=== PATIENT | female | born 1950 | race Caucasian/White ===

== ENCOUNTER → 2017-02-10 | Outpatient (CLI) | payer OTHER, BC ==
[~2017-02-10] MED LIST: ASPIRIN EC81 M1 PO; CLIMARA 0.070.075 MG; ESTRACE0.5 MG PO; LEVOTHYROXINE0.2 M1 PO; VERAPAMIL ER120 MG PO; ZOFRAN ODT4 MG PO
--- NOTE | ~2017-02-10 | PFR/MVV ---
[facility] [place] [address] PULMONARY FUNCTION MVV/REPORT Name: GRISELDA JONES Room #: [facility]#: [id number] Admission: 02/10/17 Attend Phys: MILTON Bo Discharge: Date of : 50 Report #: [id number] THIS REPORT FOR: //name// COPIES FOR: AGE: 66 SEX/RACE: F/C >> SPIROMETRY: (BTPS) Height: 63.0 in cm Weight: 197 lbs kg Exam Date: 02/10/17 PRE-RX POST-RX PRED BEST %PRED BEST %PRED %CHG FVC LITERS . 2.96 . 3.26 . 110 . 3.38 . 114 . 4 FEV1 LITERS . 2.43 . 2.39 . 99 . 2.64 . 109 . 10 FEV1/FVC % . 84 . 73 . 88 . 78 . 93 . 6 NHA59-85% L/Sec . 2.66 . 1.75 . 66 . 2.31 . 87 . 32 PEF L/SEC . 5.70 . 6.55 . 115 . 6.70 . 118 . 2 FEF50/FIF50 UNITLESS . <1.00 . 0.48 . . 0.62 . . 30 MVV L/Min . 95 . 66 . 70 f 1/Min . . 145 . >> LUNG VOLUMES: (BTPS) PRE-RX POST-RX PRED AVG %PRED AVG %PRED %CHG VC Liters . 2.96 . 3.26 . 110 . . . TLC Liters . 4.72 . 4.96 . 105 . . . RV Liters . 1.73 . 1.71 . 99 . . . RV/TLC % . 37 . 94 . 94 . . . FRC PL Liters . 2.25 . 1.90 . 84 . . . FRC N2 Liters . 2.25 . . . . . ERV Liters . . 0.19 . . . . IC Liters . . 2.90 . . . . >> DIFFUSION: DLCO ml/Min/mmHg . 23.7 . 17.8 . 75 . . . DL Beatrice ml/Min/mmHg . 23.7 . 17.8 . 75 . . . DLCO/VA ml/Min/mmHg . 3.93 . 4.43 . 113 . . . VA Liters . . 4.01 . . . . [facility] [address] [place] [address] PULMONARY FUNCTION MVV/REPORT Name: GRISELDA JONES Room #: [facility]#: [id number] Admission: 02/10/17 Attend Phys: MILTON Bo Discharge: Date of : 50 Report #: [id number] COMMENTS: COMMENTS: >> RESISTANCE: PRE-RX PRED AVG %PRED Raw Total cmH20/L/Sec . . 4.91 . Raw Insp cmH20/L/Sec . . 6.16 . Raw Exp cmH20/L/Sec . . 8.98 . Raw cmH20/L/Sec . 1.74 . 1.91 . 110 Gaw L/Sec/cmH20 . 0.539 . 0.523 . 97 sRaw cmH20 Sec . 3.92 . 5.90 . 151 sGaw l/cmH20 Sec . 0.255 . 0.169 . 66 Vtq Liters . . 3.09 . # = OUTSIDE 95% CONFIDENCE INTERVAL CALIBRATION: PRED: 3.00 ACTUAL: EXP 3.01 INSP 3.02 [facility]-10-06 [facility] N-1804-4 >> INTERPRETATION/IMPRESSION: CC: Jose F Wilkes DATE OF SERVICE: 02/10/2017 DATE OF STUDY: 02/10/2017 NOTATION: Full pulmonary function studies revealed normal spirometry. There was some improvement with bronchodilators. Lung volumes are normal. DLCO Normal. OVERALL IMPRESSION: Normal lung volumes with some improvement noted with bronchodilators, although no evidence for airflow obstruction. Correlate clinically. <ELECTRONICALLY SIGNED> By: Meek Hendrickson MD 02/18/17 1305 Meek Hendrickson MD /nt
== END ==
LOC: PUL 09:48
DX: R06.2 Wheezing (principal)

== ENCOUNTER → 2017-03-23 | Outpatient (CLI) | payer OTHER, BC | LOC: RAD 02:25 | DX: Z12.31 Encounter for screening mammogram for malignant neoplasm of breast (principal) ==

== ENCOUNTER → 2018-04-01 | Outpatient (CLI) | payer OTHER, BC | LOC: RAD 08:56 | DX: J98.4 Other disorders of lung (principal); Z90.49 Acquired absence of other specified parts of digestive tract ==

== ENCOUNTER → 2018-11-17 | Outpatient (CLI) | payer OTHER | LOC: CAT 09-13 15:20 | DX: Z13.6 Encounter for screening for cardiovascular disorders (principal); E78.00 Pure hypercholesterolemia, unspecified; Z82.49 Family history of ischemic heart disease and other diseases of the circulatory system ==

== ENCOUNTER → 2018-12-30 | Outpatient (CLI) | payer OTHER, BC | LOC: MRI 13:32 | DX: R60.0 Localized edema (principal); M25.561 Pain in right knee; M25.572 Pain in left ankle and joints of left foot; G89.29 Other chronic pain ==

== ENCOUNTER → 2020-01-17 | Outpatient (CLI) | payer OTHER, BC | LOC: BC 08:23 → RAD 09:25 | PROVIDERS: ATTEND Obstetrics & Gynecology | DX: N63.10 Unspecified lump in the right breast, unspecified quadrant (principal); N64.89 Other specified disorders of breast ==

== ENCOUNTER → 2020-04-11 | Outpatient (CLI) | payer OTHER, BC | LOC: SJCVCIMAG 11:21 | PROVIDERS: ATTEND Internal Medicine Cardiovascular Disease | DX: I49.3 Ventricular premature depolarization (principal); I10 Essential (primary) hypertension; E78.5 Hyperlipidemia, unspecified; R93.1 Abnormal findings on diagnostic imaging of heart and coronary circulation ==

== ENCOUNTER 2020-06-02 13:22 | Inpatient (IN) | payer OTHER, BC ==
[~2020-06-02] VITALS: Ht 162.6 cm; Wt 88.9 kg
[2020-06-02 13:33] VITALS: BP 135/77
[2020-06-02 15:43] LABS: ABSOLUTE NEUTROPHILS 5.6 thou/uL (1.4-8.2); BASOPHILS 1.1 % (0.0-2.0); HEMATOCRIT 44.5 % (37.0-47.0); LYMPHOCYTES 21.2 % (24.0-44.0); MCH 29.5 pg (26.0-34.0); MCHC 33.7 g/dL (28.0-37.0); MCV 87.3 fL (80.0-100.0); MONOCYTES 6.6 % (1.0-8.0); PLATELET COUNT 366 thou/uL (150-400); POLYS 67.1 % (36.0-66.0); RDW 12.3 % (10.5-14.5); WBC 8.4 thou/uL (4.0-11.0)
[2020-06-02 15:53] LABS: ANION GAP 10 mmol/L (7-16); BUN 19 mg/dL (7-18); CHLORIDE 99 mmol/L (98-107); CO2 30 mmol/L (21-32); CREATININE 1.2 mg/dL (0.6-1.0); GLUCOSE 102 mg/dL (74-106); POTASSIUM 3.4 mmol/L (3.5-5.1); SODIUM 139 mmol/L (136-145)
[2020-06-02 16:04] LABS: ALBUMIN 2.9 g/dL (3.4-5.0); SGOT 22 U/L (15-37); SGPT 30 U/L (30-65); TOTAL BILIRUBIN 0.6 mg/dL (0.2-1.0); TOTAL PROTEIN 7.7 g/dL (6.4-8.2); TROPONIN-I <0.06 ng/mL (<0.06)
[2020-06-02] MEDS ORDERED: IRBESARTAN-HCT1 EACH PO (16:48)
[2020-06-02] MEDS ORDERED: EUTHYROX88 MCG PO (16:48)
[2020-06-02 20:00] VITALS: BP 121/70; BP 123/70
[2020-06-03 01:03] VITALS: BP 129/55
[2020-06-03 06:19] LABS: HEMATOCRIT 40.7 % (37.0-47.0); HEMOGLOBIN 13.8 gm/dL (12.0-15.0); MCH 29.8 pg (26.0-34.0); MCV 87.6 fL (80.0-100.0); RBC 4.65 mil/uL (4.20-5.00); RDW 12.1 % (10.5-14.5); WBC 9.3 thou/uL (4.0-11.0)
[2020-06-03 06:36] LABS: ALBUMIN 2.5 g/dL (3.4-5.0); CALCIUM 8.8 mg/dL (8.5-10.1); CREATININE 1.1 mg/dL (0.6-1.0); POTASSIUM 3.5 mmol/L (3.5-5.1); TOTAL BILIRUBIN 0.4 mg/dL (0.2-1.0); TOTAL PROTEIN 6.9 g/dL (6.4-8.2)
[2020-06-03 06:51] VITALS: BP 126/68
--- NOTE | 2020-06-03 07:17 | EKG ---
[address] [place] [address] ELECTROCARDIOGRAM REPORT Name: GRISELDA JONES Room #: 170-23 ADM IN M.R.#: [id number] Admission: 06/02/20 Attend Phys: Eleazar Wilkes MD Discharge: Date of : 50 Report #: [id number] [facility] ED Test Date: 2020-06-02 Test Time: 15:15:50 Pat Name: GRISELDA JONES Department: Room: 170 Gender: F [employer] Press Operator: DULCE MARIA : 1950 Requested By: Roseline Poe Order Number: [id number] MD: Meek Garza Measurements Intervals [place] Rate: 85 P: 58 RI: 170 QRS: -14 QRSD: 80 T: -39 QT: 365 QTc: 434 Interpretive Statements Sinus rhythm Left ventricular hypertrophy Anterior Q waves, possibly due to LVH Nonspecific T abnormalities, inferior leads Compared to ECG 09/16/2011 21:56:21 Left ventricular hypertrophy now present Q waves now present Myocardial infarct finding no longer present Possible ischemia no longer present T-wave abnormality still present Electronically Signed On 06-03-2020 7:17:23 ACQUISITIONS LOGISTICS ANALYST by Meek Garza [email or web address] <ELECTRONICALLY SIGNED> By: Meek Garza MD, FAC 06/03/20 0717 1515 1515 Meek Garza MD, [facility] /EPI
[2020-06-03 11:00] VITALS: BP 140/69
--- NOTE | 2020-06-03 14:36 | NUR ---
69 y/o female admitted to the ED with complaints of nausea, decreased appetite, feeling short of breath, particularly with exertion. She reports running fevers, T-max =102.2 degrees, starting 1 week ago that lasted for approximately 1 week. Patient states on 05/23/2020, she woke with back pain and sinus pressure headache. She contacted her PCP who prescribed doxycycline, muscle relaxant and steroid. The following day she tested positive for COVID-19. CXR reveals "persistent mild bilateral mid and lower lung nonconsolidative infiltration, most prominent on the left, unchanged." Patients spouse John Pulido is listed as contact with home number of [phone] and cell number of [phone]. Patient is being admitted for pneumonia, covid 19, dyspnea with exertion, under Dr. Wilkes. CM will follow for needs as care and discharge progresses.
[2020-06-03 15:00] VITALS: BP 140/69
[2020-06-04 05:50] LABS: ALBUMIN 2.3 g/dL (3.4-5.0); ANION GAP 9 mmol/L (7-16); BUN 18 mg/dL (7-18); CALCIUM 8.3 mg/dL (8.5-10.1); CHLORIDE 109 mmol/L (98-107); CO2 26 mmol/L (21-32); CREATININE 0.9 mg/dL (0.6-1.0); DIRECT BILIRUBIN < 0.1 mg/dL (<0.1-0.2); GLUCOSE 159 mg/dL (74-106); PHOSPHORUS 2.8 mg/dL (2.5-4.9); POTASSIUM 3.6 mmol/L (3.5-5.1); SGOT 20 U/L (15-37); SGPT 32 U/L (30-65); SODIUM 144 mmol/L (136-145); TOTAL BILIRUBIN 0.3 mg/dL (0.2-1.0); TOTAL PROTEIN 6.1 g/dL (6.4-8.2)
[2020-06-04 07:54] VITALS: BP 135/48
[2020-06-04 08:10] VITALS: BP 132/68
[2020-06-04 12:45] VITALS: BP 140/73
[2020-06-04 13:47] VITALS: BP 143/69
[2020-06-04 13:55] VITALS: BP 131/72
--- NOTE | 2020-06-04 17:24 | NUR ---
ASSUMED CARE OF PT ON ARRIVAL TO UNIT. PT AOX4 IN NO ACUTE DISTRESS. BREATHING COMFORTABLY ON 2L NC. AMBULATING AROUND ROOM BY SELF. CALLS APPROPRIATELY. WCM.
[2020-06-04 19:05] VITALS: BP 122/62
--- NOTE | 2020-06-04 23:53 | NUR ---
PT AMBULATING IN ROOM. O2 PER NC. PT REPORTS MOUTH BREATHING AND THAT ED TOLD HER THAT HER O2 DECREASED WHEN SHE WAS SLEEPING. PT REQUESTED NC INCREASE TO 3L. RESPIRATORY CONTACTED FOR BUBBLER, PT REPORTING DRY NOSE. PT STILL REPORTS NO BM AND OFFERED PRUNE JUICE. PT DISCUSSED HOW HER IS ALSO A PT ON THIS FLOOR.
[2020-06-05] VITALS (8 sets, daily range): BP systolic 107–176; BP diastolic 49–112
--- NOTE | 2020-06-05 06:02 | NUR ---
PT HR IN UPPER 40'S LOWER 50'S WHEN ASLEEP.
[2020-06-05 07:13] LABS: ALBUMIN 2.6 g/dL (3.4-5.0); ANION GAP 6 mmol/L (7-16); BUN 20 mg/dL (7-18); CALCIUM 8.5 mg/dL (8.5-10.1); CHLORIDE 107 mmol/L (98-107); CO2 28 mmol/L (21-32); CREATININE 0.9 mg/dL (0.6-1.0); DIRECT BILIRUBIN < 0.1 mg/dL (<0.1-0.2); GLUCOSE 143 mg/dL (74-106); PHOSPHORUS 3.3 mg/dL (2.6-4.7); POTASSIUM 3.3 mmol/L (3.5-5.1); SGOT 26 U/L (15-37); SGPT 47 U/L (14-59); SODIUM 141 mmol/L (136-145); TOTAL BILIRUBIN 0.3 mg/dL (0.2-1.0); TOTAL PROTEIN 6.4 g/dL (6.4-8.2)
[2020-06-05 07:41] LABS: HEMATOCRIT 40.2 % (37.0-47.0); HEMOGLOBIN 13.2 gm/dL (12.0-15.0); MCH 29.1 pg (26.0-34.0); MCHC 32.8 g/dL (28.0-37.0); MCV 88.8 fL (80.0-100.0); RBC 4.52 mil/uL (4.20-5.00); RDW 12.6 % (10.5-14.5); WBC 15.8 thou/uL (4.0-11.0)
--- NOTE | 2020-06-05 12:49 | NUR ---
IV TEAM SPOKE WITH PT,ABOUT MIDLINE. PT HAS WORKING PIV FOR NOW SO DOES NOT WANT ANYTHING PLACED YET
--- NOTE | 2020-06-05 14:16 | NUR ---
INITIAL ASSESSMENT: SW reviewed chart and spoke with nursing. Pt was admitted from home due to pneumonia. Pt placed in Enhanced Isolation due to COVID-19. Pt had positive COVID test on 05/23. Pt is afebrile and on 2L of O2. Pt is on IV abx and completing course of Remdesivir. SW spoke with pt via phone. Introduced role of SW. Pt is alert/orientated x 4. Pt reports that she and her (currently in room 354) live at home. Prior to admission, pt was independent with ADLs. Pt does not use any DME. No hx of services or post-acute placement. Pt's PCP is Dr. Wilkes. Plan is for pt to discharge home when medically stable. Pt is hoping to be able to visit her today. [facility] is following to assist as needed with discharge planning.
--- NOTE | 2020-06-05 18:37 | NUR ---
A/O X4. ANXIUOS. TOLERATED ON 2L. SLOWLY TOWARDS POC GOALS.
[2020-06-06 04:05] VITALS: BP 154/77
--- NOTE | 2020-06-06 06:37 | NUR ---
UP WITH STANDBY ASSIST TO THE HALLWAY VISITING HER .PT STRESSED OUT ABOUT 'S CONDITION.O2 2L NC.TOLERATING WELL.POC CONTINUED.
[2020-06-06 07:08] LABS: ALBUMIN 2.7 g/dL (3.4-5.0); ANION GAP 9 mmol/L (7-16); BUN 20 mg/dL (7-18); CALCIUM 8.5 mg/dL (8.5-10.1); CHLORIDE 106 mmol/L (98-107); CO2 27 mmol/L (21-32); DIRECT BILIRUBIN < 0.1 mg/dL (<0.1-0.2); GLUCOSE 156 mg/dL (74-106); PHOSPHORUS 2.9 mg/dL (2.5-4.9); POTASSIUM 3.3 mmol/L (3.5-5.1); SGOT 24 U/L (15-37); SGPT 50 U/L (30-65); SODIUM 142 mmol/L (136-145); TOTAL BILIRUBIN 0.4 mg/dL (0.2-1.0); TOTAL PROTEIN 6.6 g/dL (6.4-8.2)
[2020-06-06 07:37] VITALS: BP 155/75
--- NOTE | 2020-06-06 11:56 | NUR ---
PT CARE ASSUMED AT 0700. A&Ox4. PT EDUCATED ON IS. POTASSIUM 3.3 PROVIDER AWARE AND POTASSIUM REPLACEMENT SCHEDULED. IV PATENT WITH NO REDNESS OR EDEMA, SALINE LOCKED. IV ANTIBIOTICS INFUSING. PT SPOUSE IN ICU OF THIS AM, SHE IS VERY WORRIED, DEPRESSED, AND ANXIOUS. VERY TEARFUL. UP AT KARINA INDEPENDENTLY IN HER, ROOM. CALLL LIGHT IN ROOM. WILL CONTINUE TO MONITOR. ECHO COMPLEETED.
--- NOTE | 2020-06-06 12:44 | NUR ---
SW reviewed chart and spoke with nursing and attending physician. Pt remains in Enhanced Isolation due to COVID-19. Pt is afebrile and on 2L of O2. Pt is on IV abx and IV steroids. Pt is completing course of Remdesivir. Discharge home is anticipated over the holiday weekend. No discharge needs identified at this time. [facility] is following to assist as needed with discharge planning.
[2020-06-06 15:44] VITALS: BP 150/73
[2020-06-06 19:01] VITALS: BP 113/54
[2020-06-07 03:44] VITALS: BP 150/84
--- NOTE | 2020-06-07 05:21 | NUR ---
PT AMBULATING TO BATHROOM INDEPENDENTLY AND IS TOLERATING WELL. DENIES PAIN. VERY TEARFUL HER WEDNESDAY. XANAX GIVEN TO HELP WITH SLEEP. CALL LIGHT WITHIN REACH. FREQUENT OBSERVATION.
[2020-06-07 07:13] VITALS: BP 151/88
[2020-06-07 09:28] LABS: HEMATOCRIT 41.3 % (37.0-47.0); HEMOGLOBIN 13.7 gm/dL (12.0-15.0); MCH 29.3 pg (26.0-34.0); MCHC 33.1 g/dL (28.0-37.0); MCV 88.4 fL (80.0-100.0); RBC 4.67 mil/uL (4.20-5.00); RDW 12.6 % (10.5-14.5); WBC 9.8 thou/uL (4.0-11.0)
[2020-06-07 09:38] LABS: ALBUMIN 2.7 g/dL (3.4-5.0); CALCIUM 8.4 mg/dL (8.5-10.1); CREATININE 0.9 mg/dL (0.6-1.0); DIRECT BILIRUBIN 0.1 mg/dL (<0.1-0.2); PHOSPHORUS 2.4 mg/dL (2.5-4.9); POTASSIUM 3.4 mmol/L (3.5-5.1); TOTAL BILIRUBIN 0.5 mg/dL (0.2-1.0); TOTAL PROTEIN 6.4 g/dL (6.4-8.2)
--- NOTE | 2020-06-07 12:20 | NUR ---
PT CARE ASSUMED AT 0700. A&Ox4. PT UP IN THE RECLINER VERY TEARFUL SPEAKING TO FAMILY ABOUT ARRANGEMENTS. PT YESTERDAY IN THE ICU DUE TO COVID. ON 0.5 TOLERATING WELL WITH A GOAL TO WEAN COMPLEETLY OFF SO SHE CAN DC TOMORROW. COVID TEST REPEATED PER PT REQUEST AND MD ORDER. UP INDEPENDENTLY IN ROOM. PT SEEMS TO BE "NUMB" AND MAKING ARRANGEMENTS. 09/08 REMDESIVIER GIVEN TODAY. IV PATENT WITH NO REDNESS OR EDEMA, SALINE LOCKED. CALL LIGHT IN REACH. WILL CONTINUE TO MONITOR.
[2020-06-07 15:05] VITALS: BP 134/79
[2020-06-07 20:15] VITALS: BP 139/79
--- NOTE | 2020-06-07 22:56 | NUR ---
PT UP IN CHAIR TALKING WITH FAMILY ON PHONE. PT DISCUSSING HER HUSBANDS YESTERDAY, THAT STATED HE CODED 10 TIMES, THAT SHE GAVE CONSENT FOR HER TO BE PUT ON VENTILATOR THINKING HE WOULD BE MEDICATED TO BE ASLEEP. PT REASSURED THAT HER WAS SEDATED WHEN HE WAS ON THE VENTILATOR. PRN FOR ANXIETY PROVIDED, HS SNACK. PT WANTING TO DC IN AM, STATED PREFERABLY WITHOUT OXYGEN. . PT ASKED WHERE HER HUSBANDS CLOTHES WERE, PT WILL BE INFORMED THEY ARE WITH PT AT HOME. O2 PRN 2L NC, SOA WITH EXERTION.
[2020-06-08 05:35] VITALS: BP 149/81
--- NOTE | 2020-06-08 05:46 | NUR ---
PT REPORTED SLEEPING AT NIGHT. PT TEARFUL THIS AM. PT STATED SHE WILL ASK DR FOR MEDICATION TO HELP HER SLEEP ONCE SHE GOES HOME.
[2020-06-08 07:06] VITALS: BP 143/88
[2020-06-08] MEDS ORDERED: BENZONATATE100 MG PO (08:07)
[2020-06-08] MEDS ORDERED: ALPRAZOLAM 0.50.5 M1 PO (08:07)
[2020-06-08] MEDS ORDERED: PREDNISONE 5 MG5 M1 PO (08:09)
--- NOTE | 2020-06-08 10:56 | NUR ---
RN ASSUMED PT'S CARE AT 0700AM, PT IS A&OX3, PT IS ON O2 2L/MIN/NC, PT'S VS ARE STABLE, PT IS CONTINUING IV ABX , PT WILL DC TO HOME WITH HOME HEALTH TODAY, PT WILL HAVE RT SATURATION REST & EXERCISE TO CHECK PT NEEDS O2 AT HOME.
[2020-06-08 13:28] VITALS: BP 143/88
--- NOTE | 2020-06-08 14:30 | NUR ---
RN HAS GIVING PT DC TEACHING, PT UNDERSTANDED WELL , PT'D FAMILY PICK PT TO HOME AT 1420PM
== END 2020-06-08 14:20 | disposition home or self-care (01) | DRG 177 ==
LOC: ER 13:22 → EROBS 16:39 → 3W 16:39
PROVIDERS: Physician Assistant; ADMIT Family Medicine; ATTEND Family Medicine
PROC: XW033E5 Introduction of Remdesivir Anti-infective into Peripheral Vein, Percutaneous Approach, New Technology Group 5 (ICD-10-PCS; principal; 2020-06-03)
DX: U07.1 COVID-19 (principal); J96.01 Acute respiratory failure with hypoxia; J12.82 Pneumonia due to coronavirus disease 2019; N17.0 Acute kidney failure with tubular necrosis; E43 Unspecified severe protein-calorie malnutrition; R65.11 Systemic inflammatory response syndrome (SIRS) of non-infectious origin with acute organ dysfunction; I10 Essential (primary) hypertension; K59.00 Constipation, unspecified; E89.0 Postprocedural hypothyroidism; Z90.710 Acquired absence of both cervix and uterus; Z86.19 Personal history of other infectious and parasitic diseases; Z88.0 Allergy status to penicillin; Z79.899 Other long term (current) drug therapy
CPT/HCPCS: 10779; 10879

== ENCOUNTER → 2020-11-27 | Outpatient (CLI) | payer OTHER, BC ==
[~2020-11-27] MED LIST changes: +ALPRAZOLAM 0.50.5 M1 PO; +BENZONATATE100 MG PO; +EUTHYROX88 MCG PO; +IRBESARTAN-HCT1 EACH PO; +PREDNISONE 5 MG5 M1 PO
== END ==
LOC: SJCVC 13:18
PROVIDERS: ATTEND Internal Medicine Cardiovascular Disease
DX: I12.9 Hypertensive chronic kidney disease with stage 1 through stage 4 chronic kidney disease, or unspecified chronic kidney disease (principal); N18.9 Chronic kidney disease, unspecified; E78.2 Mixed hyperlipidemia; R93.1 Abnormal findings on diagnostic imaging of heart and coronary circulation; R07.89 Other chest pain; Z88.0 Allergy status to penicillin; Z79.899 Other long term (current) drug therapy; Z86.16 Personal history of COVID-19; Z82.49 Family history of ischemic heart disease and other diseases of the circulatory system

== ENCOUNTER → 2021-01-02 | Outpatient (CLI) | payer OTHER, BC | LOC: SJCVCIMAG 08:27 | PROVIDERS: ATTEND Internal Medicine Cardiovascular Disease | DX: I10 Essential (primary) hypertension (principal); E78.5 Hyperlipidemia, unspecified; R93.1 Abnormal findings on diagnostic imaging of heart and coronary circulation; R07.89 Other chest pain; Z79.899 Other long term (current) drug therapy; Z86.16 Personal history of COVID-19; Z82.49 Family history of ischemic heart disease and other diseases of the circulatory system ==